=== PATIENT | female | born 2000 | race Caucasian/White ===

== ENCOUNTER 2022-12-17 12:56 | Inpatient (IN) | payer OTHER ==
[2022-12-17] VITALS (9 sets, daily range): BP systolic 81–114; BP diastolic 54–83; PULSE 70–157; TEMP 96.8–98.5
[~2022-12-17] VITALS: Ht 157.5 cm; Wt 76.4 kg
[~2022-12-17 12:56] MED LIST: PRENATAL TABLET
[2022-12-17] MEDS ORDERED: QUALITY CHOICE AL70% TP (13:05)
[2022-12-17] MEDS ORDERED: PRENATAL TABLET PO (13:06)
--- NOTE | 2022-12-17 14:52 | NUR ---
1150 - Pt and spouse arrive to unit via wheelchair. Pt reports having contractions, denies leaking of fluid or vaginal bleeding, reports good movement. Pt placed on monitors, VS taken. SVE per Caty Craven RN 5-/-2. Pt desires little intervention, does not want continuous monitoring, ok with IV site but does not want fluids running. Pt has od grinder operator on her way with plan.
[2022-12-17 14:58] LABS: BASO # 0.1 K/mm3 (0.0-0.2); BASO % 0.4 % (0.0-2.0); EOS % 0.1 % (0.0-4.0); GRAN # 13.5 K/mm3 (1.4-6.5); GRAN % 85.6 % (42.2-75.2); HEMATOCRIT 39.8 % (37.0-47.0); HEMOGLOBIN 13.9 g/dl (12.5-16.0); LYMPH % 6.6 % (20.0-51.0); MEAN CELL VOLUME 92 fl (80.0-100.0); MEAN CORPUSCULAR HEMOGLOBIN 32 pg (27-31); MEAN CORPUSCULAR HGB CONC 35 g/dl (33.0-37.0); MEAN PLATELET VOLUME 11.2 fl (7.4-10.4); MONO # 1.1 K/mm3 (0.1-0.6); MONO % 6.7 % (1.7-9.3); PLATELET COUNT 156 K/mm3 (130-400); RED BLOOD COUNT 4.32 M/mm3 (4.10-5.30); REDCELL DISTRIBUTION WIDTH-CV 13.1 % (11.5-14.5)
--- NOTE | 2022-12-17 15:19 | NUR ---
1330 - Consents discussed with pt, questions asked and answered. Pt undecided at this time on Vit K and eye ointment, as well as pitocin after delivery. 1400 - IV started in right hand. Unable to obtain labs, lab called to come to pt room. 1410 - Monitors on with pt consent. 1420 - Pt reports feeling a large increase in discharge, thinks it is fluid leaking. AmniTest swab done, immediate color change to green. Pt considered SROM at this time. Dr. Henriquez notified. 1430 - Lab to pt room to draw ordered labs. Blood glucose obtained. 1500 - Dr. Henriquez on unit. Pt reporting rectal pressure that comes and goes with contractions. Physician to bedside. SVE per provider 8/0.
--- NOTE | 2022-12-17 18:29 | NUR ---
1543 - Pt reporting increasing rectal pressure, requests cervical check. SVE 9/100/0 with bulging bag. Discussion with pt that breaking bag of water could result in quicker of baby. Pt requests breaking of bag. Dr. Henriquez notified. 1554 - Dr. Henriquez to bedside. Artificial rupture of bulging bag. Clear fluid noted. 1602 - Pt reports strong urge to push, SVE AL/100/+1. Pt continues in hands and knees position with named account executive at side. 1604 - FHR monitor on. Contractions palpated and reported every 2 minutes. FHR baseline 140 with early decelerations. 1614 - Pt repositioned for cervical check on left side. SVE 10/100/+2. Dr. Henriquez on unit and notified. 1617 - FHR monitor on. Difficulty keeping continuous tracing due to maternal hands and knees position and movement. Contractions continue every 1.5-3 minutes, firm on palpation. 1620 - Pt begins pushing with contractions. Early and variable FHR decelerations noted with pushing. Continuous tracing continues to be difficult due to maternal movement. 1630 - Dr. Henriquez and nursery called to bedside for delivery. Pt repositioned to right side, bed remains intact. 1640 - Deep FHR variable noted with contraction and pushing. Moderate variability continues. 1644 - Viable female delivered spontaneously attended by Dr. Henriquez. Infant placed on blanket on bed where dried and stimulated. Care of infant transferred to REGINA Mejia of nursery. 1651 - Placenta spontaneously delivered by Dr. Henriquez. Pitocin started per protocol. Fundal massage provided during repair as requested by physician. Bleeding and clots continue during repair, 600mcg cytotec placed rectally by Dr. Henriquez at 1726. Repair of 3rd degree laceration completed, see physician documentation. 1730 - Pericare provided. Clean bed pad and ice pack placed. Pt repositioned for comfort.
--- NOTE | 2022-12-17 18:30 | NUR ---
1829 SCHEDULED MOTRIN AND TYLENOL GIVEN. REG DIET TAKEN. 1914 IV TO INT. AMB TO BR WITH ASSIST AND GLORIA WELL. UNABLE TO VOID. PERICARE DONE. TUCKS AND ICE PACK APPLIED. AMB TO 214 AND GLORIA WELL.
[2022-12-17] MEDS ORDERED: MOTRIN 800800 MG/TAB PO (21:22)
[2022-12-18 00:30] VITALS: BP 96/65; PULSE 127; TEMP 99
[2022-12-18 04:00] VITALS: BP 84/46; PULSE 105; TEMP 97.5
[2022-12-18 06:04] LABS: HEMATOCRIT 27.7 % (37.0-47.0)
[2022-12-18 09:30] VITALS: BP 89/49; PULSE 110; TEMP 97.7
--- NOTE | 2022-12-18 18:40 | NUR ---
DISCHARGE COMPLETED BY PRIOR SHIFT. PT, SPOUSE AND BABY ESCORTED OFF UNIT BY RAS, PUPPET MASTER.
== END 2022-12-18 18:40 | disposition home or self-care (01) | DRG 768 ==
LOC: LDRO 12:56 → OB 16:18 → LDR 16:18 → OB 19:15
PROVIDERS: ADMIT Obstetrics & Gynecology
PROC: 10E0XZZ Delivery of Products of Conception, External Approach (ICD-10-PCS; principal; 2022-12-17)
PROC: 0DQR0ZZ Repair Anal Sphincter, Open Approach (ICD-10-PCS; 2022-12-17)
PROC: 0W8NXZZ Division of Female Perineum, External Approach (ICD-10-PCS; 2022-12-17)
DX: O24.420 Gestational diabetes mellitus in childbirth, diet controlled (principal); Z37.0 Single live birth; D62 Acute posthemorrhagic anemia; O72.1 Other immediate postpartum hemorrhage; O70.20 Third degree perineal laceration during delivery, unspecified; O90.81 Anemia of the puerperium; O48.0 Post-term pregnancy; Z3A.41 41 weeks gestation of pregnancy
CPT/HCPCS: J0690; J2590